=== PATIENT | male | born 2000 | race Two or more races ===

== ENCOUNTER 2021-02-14 22:28 | Emergency (ER) | payer OTHER ==
[2021-02-14] MEDS ORDERED: Ketorolac Tromethamine 15 MG/ML VIAL ONE (23:10)
[2021-02-14] MEDS ORDERED: Acetaminophen 325 MG TAB ONE (23:10)
== END 2021-02-15 00:18 | disposition home or self-care (01) ==
LOC: CSHERS 22:28
DX: S06.0X9A Concussion with loss of consciousness of unspecified duration, initial encounter (principal); S60.222A Contusion of left hand, initial encounter; J45.909 Unspecified asthma, uncomplicated; F17.220 Nicotine dependence, chewing tobacco, uncomplicated; F17.210 Nicotine dependence, cigarettes, uncomplicated; W10.9XXA Fall (on) (from) unspecified stairs and steps, initial encounter
CPT/HCPCS: 96372; J1885

== ENCOUNTER 2023-06-04 11:34 | Emergency (ER) | payer SELFPAY, OTHER ==
[2023-06-04] MEDS ORDERED: Boostrix 0.5 ML (Tdap) VIAL (>/=7 yrs of age) ONE (13:44)
== END 2023-06-04 14:16 | disposition home or self-care (01) ==
LOC: CSHERS 11:34
DX: S61.431A Puncture wound without foreign body of right hand, initial encounter (principal); F17.210 Nicotine dependence, cigarettes, uncomplicated; W26.9XXA Contact with unspecified sharp object(s), initial encounter
CPT/HCPCS: 90471; 90715